=== PATIENT | female | born 1965 | race Caucasian/White ===

== ENCOUNTER → 2016-06-22 | Outpatient (CLI) | payer OTHER ==
[~2016-06-22] MED LIST: ATOR20TA15 PO; IOHEXOL 350 MG/ML 10 ML VIAL (for RAD DIAG) IV ONE; SERT-129 PO; SERT-132 PO; TOPR25TA PO
--- NOTE | 2016-06-22 15:39 | RADRPT ---
EXAM DATE/TIME: 06/22/2016 14:51 [place] COMPARISON: No previous studies available for comparison. INDICATIONS : Diffuse lower abdomen pain. IV CONTRAST: 100 cc Omnipaque 350 (iohexol) IV ORAL CONTRAST: Prescribed oral contrast ingested. RADIATION DOSE: 5.79 CTDIvol (mGy) MEDICAL HISTORY : None SURGICAL HISTORY : Tubal ligation. ENCOUNTER: Initial ACUITY: 3 months PAIN SCALE: 3/10 LOCATION: Bilateral lower quadrant TECHNIQUE: Volumetric scanning of the abdomen and pelvis was performed. Using automated exposure control and ad justment of the mA and/or kV according to patient size, radiation dose was kept as low as reasonably achievable to obtain optimal diagnostic quality images. FINDINGS: LOWER LUNGS: The visualized lower lungs are clear. LIVER: Homogeneous density without lesion. There is no dilation of the biliary tree. No calcified gallston es. Mild hepatic steatosis. SPLEEN: Normal size without lesion. PANCREAS: Within normal limits. KIDNEYS: Normal in size and shape. There is no mass, stone or hydronephrosis. ADRENAL GLANDS: Within normal limits. VASCULAR: There is no aortic aneurysm. BOWEL/MESENTERY: The stomach, small bowel, and colon demonstrate no acute abnormality. There is no free intraperitone al air or fluid. ABDOMINAL WALL: Within normal limits. RETROPERITONEUM: There is no lymphadenopathy. BLADDER: No wall thickening or mass. REPRODUCTIVE: Within normal limits. INGUINAL: There is no lymphadenopathy or hernia. MUSCULOSKELETAL: Within normal limits for patient age. CONCLUSION: Unremarkable exam. Otto Horton MD on June 22, 2016 at 15:30 Board Certified Radiologist. This report was verified electronically.
== END ==
LOC: HRAD 12:30
PROVIDERS: ATTEND Internal Medicine Gastroenterology
DX: R10.9 Unspecified abdominal pain (principal)
CPT/HCPCS: 74177; Q9967

== ENCOUNTER → 2016-07-18 | Outpatient (CLI) | payer OTHER ==
[~2016-07-18] VITALS: Ht 152.4 cm; Wt 59.9 kg
[~2016-07-18] MED LIST changes: +CHLORHEXIDINE GLUCONATE 2 % 1 PACK (2 CLOTHS) TOPICAL PRN; +INSULIN HUMAN REGULAR 1,000 UNITS/10 ML VIAL SQ PRN; -IOHEXOL 350 MG/ML 10 ML VIAL (for RAD DIAG) IV ONE; +LACTATED RINGER'S 1000 ML IV PRN; +METOPROLOL TARTRATE 25 MG TAB PO PRN; +POVIDONE IODINE 5% (ANTISEPSIS KIT) 4 APPLICATIONS EACH NARE PRN; +PROPOFOL 200 MG/20 ML AMP IV ONE; +SODIUM CHLORID 0.9% 500 ML IV PRN
[2016-07-18 11:39] VITALS: BP 144/82; PULSE 70; RESP 20; TEMP 98; O2SAT 97
[2016-07-18 13:04] VITALS: TEMP 97.9
--- NOTE | 2016-07-18 13:12 | GIPROC ---
[facility] [address] [facility]. [facility], [address] EGD PROCEDURE REPORT EXAM DATE: 07/18/2016 PATIENT NAME: Skye Stanton MR #: [id number] BIRTHDATE: 1965 ATTENDING: Allen Levy MD ORDER #: [id number] THREAD TOOL GRINDER SET UP OPERATOR: Erick Monge Hogan, Darren, and Amanda Wong STATUS: outpatient INDICATIONS: The patient is a 51 yr old female here for an EGD due to epigastric abdominal pain, chronic diarrhea, and iron deficiency anemia PROCEDURE PERFORMED: EGD w/ biopsy MEDICATIONS: None and Per Anesthesia. TOPICAL ANESTHETIC: none CONSENT: The patient understands the risks and benefits of the procedure and understands that these risks include, but are not limited to: sedation, allergic reaction, infection, perforation and/or bleeding. Alternative means of evaluation and treatment include, among others: physical exam, x-rays, and/or surgical intervention. The patient elects to proceed with this endoscopic procedure. medical equipment was checked for proper function. Hand hygiene and appropriate measures for infection prevention was taken. After the risks, benefits and alternatives of the procedure were thoroughly explained, Informed consent was verified, confirmed and timeout was successfully executed by the treatment team. The patient was anesthetized with topical anesthesia and the EC-[id number] (Pedi C) endoscope was introduced through the mouth and advanced to the second portion of the duodenum. Retroflexion was performed and was normal The gastroscope was then slowly withdrawn and removed. ESOPHAGUS: The mucosa of the esophagus appeared normal. STOMACH: The mucosa of the stomach appeared normal. DUODENUM: The duodenal mucosa appeared normal in the duodenal bulb and 2nd part duodenum. Cold forcep biopsies were taken in the second portion. ADVERSE EVENTS: There were no complications. IMPRESSIONS: 1. The esophagus appeared normal 2. The mucosa of the stomach appeared normal 3. Normal duodenal mucosa in the duodenal bulb and 2nd part duodenum 4. Retroflexion was performed and was normal RECOMMENDATIONS: Await biopsy results. Biopsy results will not be ready for 7-10 days. If you don't hear from us in two weeks, call our office for biopsy results. PATIENT CONDITION: stable DISPOSITION: Home REPEAT EXAM: NONE Allen Levy MD eSigned: Allen Levy MD 07/18/2016 1:11 PM cc: Josefa Cat M.D. PATIENT NAME: brooklynndanaeSkye MR#: [id number]
--- NOTE | 2016-07-18 13:18 | GIPROC ---
[facility] [address] [facility], [address] COLONOSCOPY PROCEDURE REPORT EXAM DATE: 07/18/2016 PATIENT NAME: Skye Stanton MR #: [id number] BIRTHDATE: 1965 ENDOSCOPIST: Allen Levy MD ORDER #: [id number] ROLL CONTOUR GRINDER: Erick Monge Hogan, Darren, and Amanda Wong STATUS: outpatient INDICATIONS: The patient is a 51 yr old female here for a colonoscopy due to abdominal pain, iron deficiency anemia, and chronic diarrhea PROCEDURE PERFORMED: Colonoscopy with biopsy MEDICATIONS: None and Per Anesthesia. PREP QUALITY: excellent PREP TYPE:GoLytely ESTIMATED BLOOD LOSS: None CONSENT: The patient understands the risks and benefits of the procedure and understands that these risks include, but are not limited to: sedation, allergic reaction, infection, perforation and/or bleeding. Alternative means of evaluation and treatment include, among others: physical exam, x-rays, and/or surgical intervention. The patient elects to proceed with this endoscopic procedure. medical equipment was checked for proper function. Hand hygiene and appropriate measures for infection prevention was taken. After the risks, benefits and alternatives of the procedure were thoroughly explained, Informed consent was verified, confirmed and timeout was successfully executed by the treatment team. A digital exam revealed no abnormalities of the rectum The New ItemEG-[id number] (Std Gastro) endoscope was introduced through the anus and advanced to the cecum, which was identified by both the appendix and ileocecal valve. The instrument was then slowly withdrawn as the colon was fully examined. COLON FINDINGS: A smooth sessile polyp measuring 3 mm in size was found in the proximal transverse colon. A polypectomy was performed with cold forceps. The resection was complete and the polyp tissue was completely retrieved. The colon mucosa was otherwise normal. Mild diverticulosis was noted in the sigmoid colon. Retroflexion was performed and was normal The scope was then completely withdrawn from the patient and the procedure terminated. PROCEDURE WITHDRAWAL TIME:12minutes ADVERSE EVENTS: There were no complications. IMPRESSIONS: 1. A sessile polyp measuring 3 mm in size was found in the proximal transverse colon; polypectomy was performed with cold forceps 2. The colon mucosa was otherwise normal 3. Mild diverticulosis was noted in the sigmoid colon 4. Retroflexion was performed and was normal 5. Revealed no abnormalities of the rectum RECOMMENDATIONS: 1. Await biopsy results. Biopsy results will not be ready for 7-10 days. If you don't hear from us in two weeks, call our office for results. 2. Follow-up my office in 2 weeks RECALL: NONE Allen Levy MD eSigned: Allen Levy MD 07/18/2016 1:18 PM cc: Josefa Cat M.D. PATIENT NAME: Skye Stanton MR#: [id number]
[2016-07-18 13:25] VITALS: BP 128/71; PULSE 78; RESP 18; O2SAT 98
== END ==
LOC: HEND 10:38
PROVIDERS: ATTEND Internal Medicine Gastroenterology
DX: R10.9 Unspecified abdominal pain (principal); D50.9 Iron deficiency anemia, unspecified; K52.9 Noninfective gastroenteritis and colitis, unspecified; D12.3 Benign neoplasm of transverse colon; R10.13 Epigastric pain
CPT/HCPCS: 88305

== ENCOUNTER → 2016-08-03 | Outpatient (CLI) | payer OTHER ==
[~2016-08-03] MED LIST changes: -CHLORHEXIDINE GLUCONATE 2 % 1 PACK (2 CLOTHS) TOPICAL PRN; -INSULIN HUMAN REGULAR 1,000 UNITS/10 ML VIAL SQ PRN; -LACTATED RINGER'S 1000 ML IV PRN; -METOPROLOL TARTRATE 25 MG TAB PO PRN; -POVIDONE IODINE 5% (ANTISEPSIS KIT) 4 APPLICATIONS EACH NARE PRN; -PROPOFOL 200 MG/20 ML AMP IV ONE; -SODIUM CHLORID 0.9% 500 ML IV PRN
== END ==
LOC: CPRE 12:34
PROVIDERS: ATTEND Obstetrics & Gynecology
DX: Z01.812 Encounter for preprocedural laboratory examination (principal); N93.8 Other specified abnormal uterine and vaginal bleeding; N92.1 Excessive and frequent menstruation with irregular cycle; R53.83 Other fatigue; D64.9 Anemia, unspecified; R93.8 Abnormal findings on diagnostic imaging of other specified body structures

== ENCOUNTER → 2016-08-08 | Day surgery (SDC) | payer OTHER ==
[~2016-08-08] VITALS: Ht 152.4 cm; Wt 61.1 kg
[~2016-08-08] MED LIST changes: +*morphine SULFATE 8 MG/ML PERIprocedure ONLY ONE; +ACETAMINOPHEN/HYDROcodone 325 MG/5 MG TAB PO PRN; -ATOR20TA15 PO; +CHLORHEXIDINE GLUCONATE 2 % 1 PACK (2 CLOTHS) TOPICAL PRN; +DO NOT ADM ANY ANTICOAGULANT DRUGS PRN; +FAMOTIDINE 20 MG/2 ML VIAL ONE; +INSULIN HUMAN REGULAR 1,000 UNITS/10 ML VIAL SQ PRN; +KETOROLAC TROMETHAMINE 60 MG/2 ML (IM) VIAL IM ONE; +LACTATED RINGER'S 1000 ML INJ 1,000 ML IV ONE; +LACTATED RINGER'S 1000 ML IV PRN; +METOPROLOL TARTRATE 25 MG TAB PO PRN; +MIDAZOLAM HCL 2 MG/2 ML VIAL ONE; +ONDANSETRON HCL 4 MG/2 ML VIAL IV PUSH ONE; +ONDANSETRON HCL 4 MG/2 ML VIAL IV PUSH PRN; +POVIDONE IODINE 5% (ANTISEPSIS KIT) 4 APPLICATIONS EACH NARE PRN; +PROPOFOL 200 MG/20 ML AMP IV ONE; -SERT-129 PO; +SODIUM CHLORID 0.9% 500 ML IV PRN
[2016-08-08 08:21] VITALS: BP 125/76; PULSE 82; RESP 16; TEMP 98.9; O2SAT 96
--- NOTE | 2016-08-08 10:44 | MP ---
cc: FERNANDO SCHAFER DATE OF SURGERY: 08/08/2016 PREOPERATIVE DIAGNOSIS 1. Dysfunctional uterine bleeding, 2. Metrorrhagia. POSTOPERATIVE DIAGNOSIS 1. Dysfunctional uterine bleeding, 2. Metrorrhagia. PROCEDURE Hysteroscopic exam, D&C with MyoSure device. ANESTHESIA General. FINDINGS On examination under anesthesia the vagina was clean, the cervix was clean. The uterus was normal size, shape and consistency. Adnexa was negative for masses. The hysteroscopic exam revealed a thin endometrium with multiple petechiae. There were no submucous myomas or polyps seen. The uterus sounded to 7 cm. COMPLICATIONS None. COUNTS Correct. ESTIMATED BLOOD LOSS Minimal. CONDITION The patient tolerated the procedure well and went to the recovery room in good condition. DETAILS OF PROCEDURE The patient was taken to the operating room, identified by name band and verbally, given a general anesthetic, prepped and draped in usual sterile fashion for vaginal surgery. A timeout was taken. Examination under anesthesia was performed with the above findings. A weighted speculum was placed in the vagina. The anterior lip of the cervix was grasped with a single-tooth tenaculum. The cervix was serially dilated up to 18-[place] to accept the hysteroscope. The hysteroscope was inserted and the entire endometrial cavity was noted. It was noted that the fundus was somewhat wide. Both ostia were clearly seen. Interestingly the endometrium was very thick and it looked like there might have been some petechiae forming and I wonder if she has a bleeding diathesis. Using the MyoSure device we got a nice sample from all the quadrants and that was followed with a sharp curettage. Once this had been accomplished the instruments were removed. She tolerated the procedure well. She did get Toradol in the operating theatre and went to the recovery room in good condition. R. MD KRYSTIN Marcos/TAI /10:13 AM /10:39 AM
[2016-08-08 11:20] VITALS: BP 116/69; PULSE 66; RESP 16; TEMP 97.9; O2SAT 99
--- NOTE | 2016-08-08 14:22 | EKG ---
Date Performed: 08/08/2016 Time Performed: 08:22:35 PTAGE: 51 years EKG: Sinus rhythm NORMAL ECG COMPARED TO PRIOR ELECTROCARDIOGRAM, Rate has slowed and ST segment depressions have reso lved. PREVIOUS TRACING : 11/29/2015 12.03 DOCTOR: Adrian Bales Interpretating Date/Time 08/08/2016 14:20:21
== END | disposition home or self-care (01) ==
LOC: HSDC 07:28
PROVIDERS: ATTEND Obstetrics & Gynecology
DX: N93.8 Other specified abnormal uterine and vaginal bleeding (principal); N92.1 Excessive and frequent menstruation with irregular cycle; R53.83 Other fatigue; D64.9 Anemia, unspecified; Z01.810 Encounter for preprocedural cardiovascular examination
CPT/HCPCS: 00952; 58558; 88305; 93005; J1885; J2250; J2270; J2405; J7120